=== PATIENT | male | born 2000 | race Hispanic/Latino ===

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

== ENCOUNTER 2021-01-08 08:08 | Emergency (ER) | payer OTHER ==
[2021-01-08] MEDS ORDERED: Ondansetron ODT 4 MG TAB ONE (08:22)
[2021-01-08] MEDS ORDERED: Ibuprofen 200 MG TAB ONE (08:22)
[2021-01-08 11:35] LABS: SARS-CoV-2 PCR by NAA DETECTED (NotDetected)
== END 2021-01-08 08:37 | disposition home or self-care (01) ==
LOC: ERS 08:08
DX: U07.1 COVID-19 (principal)
CPT/HCPCS: 87635; 99284; Q0162; U0003; U0005

== ENCOUNTER 2021-10-14 18:09 | Emergency (ER) | payer OTHER ==
[2021-10-14] MEDS ORDERED: Ibuprofen 200 MG TAB ONE (18:23)
[2021-10-14] MEDS ORDERED: Acetaminophen 500 MG TAB ONE (18:23)
[2021-10-14 18:49] LABS: #Eosinphils 0.1 thou/uL (0.0-0.7); #Lymphocytes 0.4 thou/uL (1.20-3.40); #Monocytes 0.4 thou/uL (0.11-0.59); #Neutrophils 7.4 thou/uL (1.40-6.50); %Eosinophils 0.8 % (0.0-10.0); %Lymphocytes 4.9 % (28.0-48.0); %Monocytes 5.2 % (0.0-4.0); %Neutrophils 89.1 % (31.0-61.0); Hemoglobin 15.4 g/dL (14.0-18.0); Mean Corpuscular HGB CONC 35.3 g/dL (32.0-36.0); Mean Corpuscular Hemoglobin 30.7 pg (25.0-35.0); Mean Platelet Volume 7.6 fL (7.4-10.4); Platelet Count 213 thou/uL (130-400); RBC Distribution Width 11.6 % (11.5-14.5); Red Blood Cell (RBC) Count 5.01 mill/uL (4.00-5.20); White Blood Cell (WBC) Count 8.3 thou/uL (4.8-10.8)
[2021-10-14 19:33] LABS: ALT (SGPT) 37 U/L (8-55); AST (SGOT) 27 U/L (5-34); Albumin 4.5 g/dL (3.5-5.0); Alkaline Phosphatase 109 U/L (50-130); Anion Gap 17 mmol/L (10-20); BUN (Urea Nitrogen) 17 mg/dL (8.9-20.6); Bilirubin, Total 0.9 mg/dL (0.2-1.2); Calc. Creatinine Clearance 0 mL/min (70-130); Calcium 9.4 mg/dL (7.8-10.44); Carbon Dioxide 22 mmol/L (22-29); Chloride 101 mmol/L (98-107); Globulin 2.8 g/dL (2.4-3.5); Glucose 81 mg/dL (70-105); Potassium 3.7 mmol/L (3.5-5.1); Protein, Total 7.3 g/dL (6.0-8.3); Sodium 136 mmol/L (136-145)
[2021-10-15 11:48] LABS: SARS-CoV-2 PCR by NAA Not Detected (NotDetected)
== END 2021-10-14 21:26 | disposition home or self-care (01) ==
LOC: ERS 18:09
DX: R07.9 Chest pain, unspecified (principal); Z20.822 Contact with and (suspected) exposure to COVID-19; G43.909 Migraine, unspecified, not intractable, without status migrainosus
CPT/HCPCS: 71046; 80053; 85025; 87804; 93005; U0003; U0005

== ENCOUNTER 2022-03-01 10:42 | Emergency (ER) | payer OTHER ==
[2022-03-01] MEDS ORDERED: CEFAZOLIN 1 GM VIAL ONE (10:51)
[2022-03-01] MEDS ORDERED: Fentanyl 100 MCG/2 ML VIAL ONE (11:21)
[2022-03-01] MEDS ORDERED: Ondansetron PF 4 MG/2 ML Vial ONE (11:45)
[2022-03-01] MEDS ORDERED: Iopamidol-370 76% 500 ML 1 ML ONE (13:21)
== END 2022-03-01 12:49 | disposition home or self-care (01) ==
LOC: ERS 10:42
DX: S80.212A Abrasion, left knee, initial encounter (principal); S80.211A Abrasion, right knee, initial encounter; S60.512A Abrasion of left hand, initial encounter; S60.511A Abrasion of right hand, initial encounter; S40.211A Abrasion of right shoulder, initial encounter; V29.9XXA Motorcycle rider (driver) (passenger) injured in unspecified traffic accident, initial encounter
CPT/HCPCS: 70450; 71045; 71260; 72125; 72170; 74177; 96374; 96375; G0390; J0690; J2405; J3010; Q9967